=== PATIENT | female | born 1935 | race Caucasian/White ===

== ENCOUNTER 2016-12-21 12:05 | Emergency (ER) | payer OTHER ==
[~2016-12-21] VITALS: Ht 165.1 cm; Wt 70.4 kg
[2016-12-21 12:09] VITALS: BP 142/91
== END 2016-12-21 13:40 | disposition home or self-care (01) ==
LOC: ED 12:05
DX: M25.561 Pain in right knee (principal); M19.90 Unspecified osteoarthritis, unspecified site
CPT/HCPCS: J1885

== ENCOUNTER 2018-06-30 20:47 | Emergency (ER) | payer OTHER | END 2018-06-30 23:17 | disposition home or self-care (01) | LOC: ED 20:47 ==